=== PATIENT | female | born 2000 | race Caucasian/White ===

== ENCOUNTER 2019-03-04 10:36 | Inpatient (IN) | payer OTHER ==
[~2019-03-04 10:36] MED LIST: Bupivacaine 0.25% HCL 30 ML VIAL ONE
[2019-03-04] MEDS ORDERED: hydrALAZINE 20 MG/ML VIAL SLOW IVP PRN ×3 (10:45→23:40)
[2019-03-04] MEDS: Lactated Ringer's 1,000 ML IV SCH ×3 (11:25→20:32)
[2019-03-04] MEDS ORDERED: Butorphanol Tartrate 1 MG/ML VIAL SLOW IVP PRN (11:37)
[2019-03-04] MEDS ORDERED: Lidocaine 1% (PF) 30 ML VIAL SC PRN (11:37)
[2019-03-04] MEDS ORDERED: Carboprost 250 MCG/ML AMP IM PRN (11:37)
[2019-03-04] MEDS ORDERED: Methylergonovine 0.2 MG/ML VIAL IM PRN (11:37)
[2019-03-04] MEDS ORDERED: Ondansetron PF 4 MG/2 ML Vial IVP PRN ×2 (11:37→23:40)
[2019-03-04] MEDS ORDERED: Promethazine HCl 25 MG/ML VIAL IM PRN (11:37)
[2019-03-04] MEDS ORDERED: HYDROcodone/Acetaminophen 5/325 mg Tablet PO PRN ×2 (11:37)
[2019-03-04] MEDS ORDERED: Ibuprofen 800 MG TAB PO PRN (11:37)
[2019-03-04] MEDS ORDERED: Diphenoxylate HCl/Atropine Tablet PO PRN ×2 (11:37)
[2019-03-04] MEDS ORDERED: Misoprostol 200 MCG TAB PR PRN (11:37)
[2019-03-04] MEDS ORDERED: Acetaminophen 500 MG TAB PO PRN (11:37)
[2019-03-04] MEDS ORDERED: NS w/ Oxytocin 10 units 500 ML IV SCH ×3 (11:45→15:45)
[2019-03-04 11:49] VITALS: BMI 25.8
[2019-03-04 12:01] LABS: Hemoglobin 13.5 g/dL (12.0-16.0); Mean Corpuscular HGB CONC 33.8 g/dL (32.0-36.0); Mean Corpuscular Volume 91.8 fL (78.0-98.0); Mean Platelet Volume 10.1 fL (7.4-10.4); Platelet Count 162 thou/uL (130-400); RBC Distribution Width 12.1 % (11.5-14.5); Red Blood Cell (RBC) Count 4.34 mill/uL (4.00-5.20); White Blood Cell (WBC) Count 12.7 thou/uL (4.8-10.8)
[2019-03-04 12:43] LABS: HBSAg Index 0.18 S/CO (0-0.99); Hep B Surf Ag Non-Reactive S/CO (NonReactive)
[2019-03-04 12:44] LABS: Syphilis Antibody Nonreactive (Nonreactive); Syphilis Antibody Index 0.04 S/CO (<1.00 Non-Reactive)
--- NOTE | 2019-03-04 13:14 | PDOC.FPROB ---
FMR OB H&P: HPI - History of Present Illness Chief Complaint: SROM @ 0900 today History of Present Illness: Patient is a 18 yo at 40.2 weeks by 18.2 wk U/S who presents to L&D after her water broke at 0900 this morning. Patient states she had a large gush of clear fluid with some white chunks. She also began to feel contractions across her abdomen and back, about 3-4 minutes apart. Primary Care Physician: JAMSHID Pandey/Marco Hull FMR OB H&P: Current - Care : 1 Para: 0 Gestational age: 40.2 weeks by 18.2 wk U/S Due date: 03/02/2019 Dating Criteria: 18.2 wk U/S Course/Complications: PACs in December 2018, has f/u outpatient with Cardiology on Mar 12 - OB Labs Blood type: A RH: positive Antibody Screen: negative HIV: negative RPR: negative HepBsAg: negative Rubella: immune Quad screen: negative Urine drug screen: not done Gonorrhea: negative Chlamydia: negative 1 hour gtt: normal GBS: negative FMR OB H&P: History - Past Medical History PMH: PACs in December 2018 No prior PMHx before - OB History OB History: 1st - Surgical History Sx History: none - Social History Social History: No tobacco or EtOH use FMR OB H&P: Medications - Current Home Medications: Medication Instructions Recorded Confirmed Type No122/Iron/Folic Acid 1 each PO DAILY 03/04/19 03/04/19 History [ Multi Tablet] Allergies/Adverse Reactions: Allergies Allergy/AdvReac Type Severity Reaction Status Date / Time No Known Allergies Allergy Verified 03/04/19 11:38 FMR OB H&P: ROS - Review of Systems General: denies: fever/chills, weight/appetite/sleep changes, fatigue Eyes: denies: eye pain, vision changes ENT: denies: nasal congestion, rhinorrhea, sore throat Cardiovascular: denies: chest pain, palpitation, edema Respiratory: denies: cough, congestion, shortness of breath Gastrointestinal: denies: abdominal pain, nausea, vomiting, diarrhea Genitourinary (Female): reports: contractions. denies: incontinence, dysuria, vaginal bleeding Musculoskeletal: denies: pain, stiffness, decrease range of motion Neurologic: denies: syncope, seizures, loss of counsciousness Integumentary: denies: itching, rash Hematologic/Lymphatic: denies: prolonged or excessive bleeding FMR OB H&P: Vital Signs - Maternal Vital signs: Vital Signs - First Documented Temp Pulse Resp BP Pulse Ox 99.3 F 99 18 122/78 98 03/04/19 11:34 03/04/19 11:34 03/04/19 11:34 03/04/19 11:34 03/04/19 11:34 - Heart Tones Baseline: 140 Variability: moderate Acceleration: present Deceleration: absent [place] contractions every: 4-5 min FMR OB H&P: Physical Exam - Physical Exam General: NAD, awake, alert and oriented HEENT: normocephalic and atraumatic, EOMI, MMM, conjunctiva clear, no scleral icterus, grossly normal vision, grossly normal hearing Neck: supple, FROM Heart: RRR, normal S1/S2, no murmurs/rubs/gallops, pulses present, no edema General: CTAB, no respiratory distress, good air movement, no wheezing Abdomen: soft, non-tender Musculoskeletal: normal gait and station, pulses present, FROM in all four extremities Neurological: sensation to pain,touch and proprioception grossly normal, no focal deficit Skin: no rash, good tugor, no jaundice Lymphatic: no unusual bruising or bleeding Psychiatric: intact recent and remote memory, normal mood and affect - Pelvic Exam Vulva: normal hair distribution, no blood Deviation from normal: moderate amount of clear fluid and thick discharge SVE: 4/75/-2 Membranes: SROM earlier today Presentation: cephalic FMR OB H&P: Results - Labs Lab results: Laboratory Results - last 24 hr 03/04/19 03/04/19 03/04/19 11:50 11:50 11:50 WBC RBC Hgb Hct MCV MCH MCHC RDW Plt Count MPV Syphilis IgG/IgM Ab Nonreactive Hep Bs Antigen Non-Reactive Blood Type A POSITIVE Antibody Screen NEGATIVE 03/04/19 11:50 WBC 12.7 H RBC 4.34 Hgb 13.5 Hct 39.8 MCV 91.8 MCH 31.0 MCHC 33.8 RDW 12.1 Plt Count 162 MPV 10.1 Syphilis IgG/IgM Ab Hep Bs Antigen Blood Type Antibody Screen - Imaging Imaging: Bedside U/S performed, visualized head down with cervix FMR OB H&P: A/P - Problem List (1) Spontaneous rupture of membranes Current Visit: Yes Status: Acute Code(s): [id number] - (2) Term Current Visit: Yes Status: Acute Code(s): Z34.90 - ENCNTR FOR SUPRVSN OF NORMAL , UNSP, UNSP TRIMESTER Disposition: 18 yo at 40.2 weeks presents after SROM earlier today with complaint of contractions #SROM -GBS neg -pt desires epidural -FHT 140s, FHR tracing reactive and reassuring -will start Pitocin if no progression after monitoring for 4 hours #Term -admit to L&D for monitoring of progression of labor -augment labor as necessary Discussion: Date/Time: 03/04/19 1314 This H&P was discussed with Dr. Jane and Dr. Richardson who agree with the above documentation and plan. Addendum - Attending - Attending Attestation Date/Time: 03/06/19 1211 I personally evaluated the patient and discussed the management with Dr. Dotson I agree with the History, Examination, Assessment and Plan documented above with any addition or exceptions noted below. Admit for spontaneous rupture of membranes and labor at term Anticipate
[2019-03-04] MEDS ORDERED: Fentanyl 4 mcg/Bup 0.1% Cadd 100 ML ONE (14:54)
--- NOTE | 2019-03-04 20:17 | PDOC.OBLPN ---
FMR OB Labor PN: Subj - Interval History Hospital Day: 1 Chief Complaint: pressure Indentification: 18 yo female at 40.2 wks by 18.2 wk sono Interval History: Now on pit of 6 mU. Epidural controlling pain. FMR OB Labor PN: Obj - Maternal Vital signs: BP: [120/97] 120/mod/pos acel/early decels - Urine output I&O: appropriate - Procedures Procedures: none FMR OB Labor PN: Exam - Physical Exam General: NAD, awake, alert and oriented HEENT: normocephalic and atraumatic, PERRLA, EOMI, MMM Neck: supple Chest: non-tender to palpation Heart: RRR, no edema General: no respiratory distress, good air movement Abdomen: soft, gravid, non-tender Psychiatric: good judgement and insight, normal mood and affect - Pelvic Exam Vulva: normal hair distribution, no discharge, no blood Cervix: no masses, no lesions SVE: /0 Membranes: PROM at 0900, clear Presentation: Cephalic by sutures FMR OB Labor PN: Data - Labs Lab results: Laboratory Results - last 24 hr 03/04/19 03/04/19 03/04/19 11:50 11:50 11:50 WBC RBC Hgb Hct MCV MCH MCHC RDW Plt Count MPV Syphilis IgG/IgM Ab Nonreactive Hep Bs Antigen Non-Reactive Blood Type A POSITIVE Antibody Screen NEGATIVE 03/04/19 03/04/19 11:50 12:51 WBC 12.7 H RBC 4.34 Hgb 13.5 Hct 39.8 MCV 91.8 MCH 31.0 MCHC 33.8 RDW 12.1 Plt Count 162 MPV 10.1 Syphilis IgG/IgM Ab Hep Bs Antigen Blood Type A POSITIVE Antibody Screen FMR OB Labor PN: A/P - Problem List (1) Late care Current Visit: Yes Status: Acute Code(s): O09.30 - SUPRVSN OF PREG W INSUFFICIENT ANTENAT CARE, UNSP TRIMESTER Assessment and Plan: Follow up pp to make sure patient has all appropriate items for baby. (2) Term Current Visit: Yes Status: Acute Code(s): Z34.90 - ENCNTR FOR SUPRVSN OF NORMAL , UNSP, UNSP TRIMESTER Assessment and Plan: IOB labs reviewed. Anatomy scan reviewed. 1 hour gtt WNL. s/p Tdap. GBS neg. Cephalic by sutures. Cat 1 tracing. Continue pitocin. Expect soon. Epidural in place. Disposition: Expect soon. Fady 8lb. estimate. Discussion: Date/Time: 03/04/192014 This H&P was discussed with Dr. Crawley and Dr. Sanchez who agree with the above documentation and plan. Signature: Shekhar Osorio DO, PGY1 Addendum - Attending - Attending Attestation Date/Time: 03/05/191999 I personally evaluated the patient and discussed the management with Dr. [] I agree with the History, Examination, Assessment and Plan documented above with any addition or exceptions noted below. 18 yo female at 40.2 wks by 18.2 wk sono here for labor. Patient doing well. Now progressed to [address] for pain control. Repeat exam in 1 hour. Cat 1 tracing. Ctx q 2 to 3 mins. Pili
--- NOTE | 2019-03-04 20:33 | PDOC.OBLPN ---
FMR OB Labor PN: Subj - Interval History Hospital Day: 1 Chief Complaint: Contractions FMR OB Labor PN: Exam - Physical Exam General: NAD, awake, alert and oriented HEENT: normocephalic and atraumatic, grossly normal vision, grossly normal hearing Neck: supple Heart: pulses present, no edema Abdomen: soft, non-tender Musculoskeletal: pulses present Neurological: no focal deficit Skin: no rash, good tugor - Pelvic Exam Vulva: normal hair distribution Deviation from normal: clear discharge present at vaginal introitus SVE: /-1 Presentation: cephalic, confirmed via U/S FMR OB Labor PN: Data - Labs Lab results: Laboratory Results - last 24 hr 03/04/19 03/04/19 03/04/19 11:50 11:50 11:50 WBC RBC Hgb Hct MCV MCH MCHC RDW Plt Count MPV Syphilis IgG/IgM Ab Nonreactive Hep Bs Antigen Non-Reactive Blood Type A POSITIVE Antibody Screen NEGATIVE 03/04/19 03/04/19 11:50 12:51 WBC 12.7 H RBC 4.34 Hgb 13.5 Hct 39.8 MCV 91.8 MCH 31.0 MCHC 33.8 RDW 12.1 Plt Count 162 MPV 10.1 Syphilis IgG/IgM Ab Hep Bs Antigen Blood Type A POSITIVE Antibody Screen FMR OB Labor PN: A/P - Problem List (1) Spontaneous rupture of membranes Current Visit: Yes Status: Acute Code(s): [id number] - (2) Term Current Visit: Yes Status: Acute Code(s): Z34.90 - ENCNTR FOR SUPRVSN OF NORMAL , UNSP, UNSP TRIMESTER Disposition: Patient states that she continues to feel contractions in back and abdomen about every 5 minutes. FHR in 130s, reassuring and reactive. BP 110s/70s. Mom feels baby moving. SVE 80/-1. Upon exam, some additional clear discharge and fluids were expressed. Bedside U/S exam was performed to confirm presentation-- cephalic with cervix also in view. #Term -will continue routine care -patient has watched epidural video and is still deciding on whether or not she wants it done -will augment labor with Pitocin if needed -will check for progression in 2-3 hours Discussion: Date/Time: 03/04/192029 This H&P was discussed with Dr. Richardson who agree with the above documentation and plan.
--- NOTE | 2019-03-04 20:46 | PDOC.OBLPN ---
FMR OB Labor PN: Subj - Interval History Hospital Day: 1 Chief Complaint: Contractions FMR OB Labor PN: Exam - Physical Exam General: NAD, awake, alert and oriented HEENT: normocephalic and atraumatic, grossly normal vision, grossly normal hearing Neck: supple Heart: pulses present, no edema Abdomen: soft, non-tender Musculoskeletal: pulses present, FROM in all four extremities Neurological: no focal deficit Skin: no rash, good tugor Psychiatric: normal mood and affect - Pelvic Exam Vulva: normal hair distribution, no discharge, no blood SVE: 5/80/0 Presentation: cephalic FMR OB Labor PN: Data - Labs Lab results: Laboratory Results - last 24 hr 03/04/19 03/04/19 03/04/19 11:50 11:50 11:50 WBC RBC Hgb Hct MCV MCH MCHC RDW Plt Count MPV Syphilis IgG/IgM Ab Nonreactive Hep Bs Antigen Non-Reactive Blood Type A POSITIVE Antibody Screen NEGATIVE 03/04/19 03/04/19 11:50 12:51 WBC 12.7 H RBC 4.34 Hgb 13.5 Hct 39.8 MCV 91.8 MCH 31.0 MCHC 33.8 RDW 12.1 Plt Count 162 MPV 10.1 Syphilis IgG/IgM Ab Hep Bs Antigen Blood Type A POSITIVE Antibody Screen FMR OB Labor PN: A/P - Problem List (1) Spontaneous rupture of membranes Current Visit: Yes Status: Acute Code(s): [id number] - (2) Term Current Visit: Yes Status: Acute Code(s): Z34.90 - ENCNTR FOR SUPRVSN OF NORMAL , UNSP, UNSP TRIMESTER Disposition: Patient decided that she wanted an epidural, and it was placed at approx 1530 by anesthesia. Patient now reports that she is feeling better, in less pain. Still feeling some contractions. Initially it was decided for pitocin to be started, but this order was held due to seeing some variable decels on FHR tracing. FHR 140s baseline, with some accelerations and occasional variable decel. SVE 5/80/0. #Term with SROM @ 0900 -hold pitocin order for now, will reassess in 1 hour -will recheck SVE in 2 hours -otherwise continue routine care, closely monitor FHR tracing -epidural now in place Discussion: Date/Time: 03/04/192039 This H&P was discussed with Dr. Richardson who agree with the above documentation and plan.
--- NOTE | 2019-03-04 20:50 | PDOC.OBLPN ---
FMR OB Labor PN: Subj - Interval History Hospital Day: 1 Chief Complaint: Contractions FMR OB Labor PN: Exam - Physical Exam General: NAD, awake, alert and oriented HEENT: normocephalic and atraumatic, MMM, grossly normal vision, grossly normal hearing Neck: supple Heart: pulses present, no edema Abdomen: soft, non-tender Musculoskeletal: pulses present, FROM in all four extremities Skin: no rash, no jaundice Lymphatic: no unusual bruising or bleeding - Pelvic Exam Vulva: normal hair distribution SVE: FMR OB Labor PN: Data - Labs Lab results: Laboratory Results - last 24 hr 03/04/19 03/04/19 03/04/19 11:50 11:50 11:50 WBC RBC Hgb Hct MCV MCH MCHC RDW Plt Count MPV Syphilis IgG/IgM Ab Nonreactive Hep Bs Antigen Non-Reactive Blood Type A POSITIVE Antibody Screen NEGATIVE 03/04/19 03/04/19 11:50 12:51 WBC 12.7 H RBC 4.34 Hgb 13.5 Hct 39.8 MCV 91.8 MCH 31.0 MCHC 33.8 RDW 12.1 Plt Count 162 MPV 10.1 Syphilis IgG/IgM Ab Hep Bs Antigen Blood Type A POSITIVE Antibody Screen FMR OB Labor PN: A/P - Problem List (1) Spontaneous rupture of membranes Current Visit: Yes Status: Acute Code(s): [id number] - (2) Term Current Visit: Yes Status: Acute Code(s): Z34.90 - ENCNTR FOR SUPRVSN OF NORMAL , UNSP, UNSP TRIMESTER Disposition: Patient states that she doesn't feel her contractions much. FHR tracing shows contractions occurring about every 3-4 minutes, FHR 140s, some early decels, no variable decels. Pitocin was started at 1730. BP 130s/80. SVE now #Term -continue Pitocin at 6, augment as needed -otherwise continue routine care -will recheck SVE in 2 hours to assess labor progression Discussion: Date/Time: 03/04/192045 This H&P was discussed with Dr. Richardson who agree with the above documentation and plan.
[2019-03-04] MEDS: NS / Oxytocin 40 units/1000ml 1,000 ML IV PRN ×2 (20:53→22:42)
--- NOTE | 2019-03-04 21:06 | PDOC.OPDEL ---
OB Operative/Delivery Note Delivery Dr/Surgeon: Finn Osorio Assist: Daniel (attending) Pre-Delivery Diagnosis: active labor Procedure/Post Delivery Dx: spontaneous vaginal delivery Weeks gestation: 40 (40.2) Anesthesia: epidural - Additional Findings/Plan Placenta delivered: spontaneous Repaired Obstetrical Laceration: none Compilations/Other Findings: Procedure: Spontaneous Vaginal Delivery Anesthesia: epidural QBL: 283 ml Pre-op Diagnosis: 1. Term intrauterine in labor 2. PACs, cardiology f/u 3. Late to care Post-op Diagnosis: 1. Term intrauterine , delivered 2. same as above 3. same as above Indications: A 18y/o female presents in active labor after PROM at 0900 on 03/04 Delivery Note: This is 18 yo F @ 40.2 wga by 18.2 wks sono who delivered a viable M at 2045 on 03/04. Following an uneventful antepartum course, a vigorous male was delivered over an intact perineum in the occipitoanterior position. Anterior Shoulder and then remainder of the body delivered. Loose, nuchal cord x1, which was reduced while body was delivered. Cord clamped after delayed cord clamping and cut. Cord blood collected. Placenta delivered intact in the Hammonds presentation with a 3 vessel cord noted. Fundal massage was performed, and the fundus was firm. The cervix and vagina were inspected and found to be free of lacerations. Infant went to nursery in good condition for routine care. Apgars were 9/9 at 1 & 5 minutes, respectively. Patient tolerated delivery well and went to after routine recovery/ care. Dr. Sanchez present for entirety of delivery. Attending Note: I was present for the delivery and participated in all above documented steps. 18 yo female at 40.2 wks dated by 18.2 wk sono presented in active labor after PROM at 0900 on the same day. Patient progressed spontaneously then required minimal augmentation with pitocin. Uncomplicated at 2045. delivered in OA position. Nuchal x1. Delivered through. APGARs 9/9. Delayed cord clamping performed. Placenta delivered without complications. No lacerations. Routine pp care. Pili
[2019-03-04] MEDS ORDERED: guaiFENesin 200 MG TAB PO PRN (23:36)
[2019-03-04] MEDS ORDERED: Lanolin Ointment 7 GM TUBE TOP PRN (23:40)
[2019-03-04] MEDS ORDERED: Misoprostol 200 MCG TAB VAG PRN (23:40)
[2019-03-04] MEDS ORDERED: Benzocaine-Menthol 82.5 ML CAN TOP PRN (23:40)
[2019-03-04] MEDS ORDERED: Milk Of Magnesia 30 ML UDCUP PO PRN (23:40)
[2019-03-04] MEDS ORDERED: Adacel (T-DAP) 0.5 ML SYRINGE IM ONE (23:40)
[2019-03-04] MEDS ORDERED: Preparation H Ointment 28 GM TUBE PR PRN (23:40)
[2019-03-04] MEDS ORDERED: NS / Oxytocin 40 units/1000ml 1,000 ML IV SCH (23:40)
[2019-03-04] MEDS ORDERED: diphenhydrAMINE 25 MG CAP PO PRN (23:40)
[2019-03-04] MEDS ORDERED: Bisacodyl 10 MG SUPP PR PRN (23:40)
[2019-03-04] MEDS ORDERED: Docusate Calcium (SURFAK) 240 MG CAP PO SCH (23:45)
[2019-03-04] MEDS ORDERED: Ibuprofen 800 MG TAB PO SCH (23:45)
[2019-03-05 05:58] LABS: Mean Corpuscular HGB CONC 33.5 g/dL (32.0-36.0); Mean Corpuscular Hemoglobin 31.1 pg (25.0-35.0); Mean Platelet Volume 9.5 fL (7.4-10.4); Platelet Count 122 thou/uL (130-400); RBC Distribution Width 12.2 % (11.5-14.5); Red Blood Cell (RBC) Count 3.87 mill/uL (4.00-5.20); White Blood Cell (WBC) Count 14.1 thou/uL (4.8-10.8)
[2019-03-05] MEDS: Ibuprofen 800 MG TAB PO SCH ×3 (06:08→21:29)
[2019-03-05] MEDS: Ferrous Sulfate 325 MG TAB PO SCH (07:37)
[2019-03-05] MEDS: Prenatal Vitamin 1 TAB PO SCH (08:20)
[2019-03-05] MEDS: Docusate Calcium (SURFAK) 240 MG CAP PO SCH ×2 (08:21→21:29)
--- NOTE | 2019-03-05 11:55 | PDOC.PP ---
Post Progress Note Post Day #: 1 Subjective: Patients states she feels well. Has some lower abdominal pain, "feels sore". She was able to tolerate dinner and breakfast. No bleeding or passage of clots since delivery. Denies vaginal discharge. Has not had a BM yet. Has been voiding. Denies nausea/vomiting. PO intake tolerated: yes Flatus: yes Ambulation: yes Vital Signs (12 hours) Temp Pulse Resp BP Pulse Ox 03/05/19 11:34 98.9 F 77 12 119/77 96 03/05/19 07:50 98.3 F 75 12 124/66 96 03/05/19 05:50 98.1 F 95 16 116/77 03/05/19 01:20 98.9 F 100 16 122/67 03/05/19 00:10 98.6 F 95 18 120/75 Weight Weight 72.575 kg - Physical Examination General: NAD Cardiovascular: no m/r/g, RRR Respiratory: clear to auscultation bilaterally, non-labored breathing Abdominal: + bowel sounds, no distention, appropriately TTP Fundus firm & at: 1-2 in below umbilicus Extremities: negative homans (B) (no edema, pulses equal bilaterally) Skin: no rash Neurological: no gross focal deficits Psychiatric: A&Ox3, normal affect Result Diagrams: 03/05/19 05:43 Additional Labs: Post Labs Blood Type A POSITIVE 03/04/19 12:51 Hep Bs Antigen Non-Reactive S/CO (NonReactive) 03/04/19 11:50 (1) Spontaneous rupture of membranes Code(s): [id number] - Status: Acute (2) Term Code(s): Z34.90 - ENCNTR FOR SUPRVSN OF NORMAL , UNSP, UNSP TRIMESTER Status: Acute - Assessment/Plan Patient is a 18yo Female with PMHx of PACs in December 2018, who is s/p day #1 #Term , delivered 03/04/19 -s/p on 03/04/10 at 2046. No lacerations. QBL 283. -patient doing well, is ambulating, passed gas, is voiding -no bleeding or passage of clots, will continue to monitor -desires OCPs for post- contraception, was previously taking BC "Truvora" before -continue routine post- care #Constipation -pt with no BM since admission, will order stool softener this morning #Hx of PACs -pt has scheduled outpatient follow up with Cardiology on Mar 12 Dispo: Stable, admitted to post- floor. Will order stool softener. Will continue to monitor with anticipated discharge home tomorrow morning. Addendum - Attending - Attending Attestation Date/Time: 03/05/19 2480 I personally evaluated the patient and discussed the management with Dr. Dotson I agree with the History, Examination, Assessment and Plan documented above with any addition or exceptions noted below. Stable PPD #1 s/p uncomplicated Meeting appropriate milestones Continue routine care.
[2019-03-05] MEDS ORDERED: Bisacodyl 5 MG TAB PO SCH (12:30)
[2019-03-06] MEDS: Ibuprofen 800 MG TAB PO SCH ×2 (05:43→13:58)
--- NOTE | 2019-03-06 07:23 | PDOC.PP ---
Post Progress Note Post Day #: 2 Subjective: Doing well overall. Bleeding is less than a normal period and denies passing clots. Pain controlled with Motrin. Urinating and passing gas. No complaints from patient or concerns from nursing. Denies CP, SOB, bleeding, LE edema. PO intake tolerated: yes Vital Signs (12 hours) Temp Pulse Resp BP 03/06/19 05:40 98.1 F 79 16 117/60 03/06/19 00:25 97.9 F 78 16 117/55 L Weight Weight 72.575 kg - Physical Examination General: NAD Cardiovascular: no m/r/g, RRR Respiratory: clear to auscultation bilaterally Abdominal: no distention, appropriately TTP Fundus firm & at: u-2 Extremities: negative homans (B) Neurological: no gross focal deficits Psychiatric: A&Ox3, normal affect Result Diagrams: 03/05/19 05:43 Additional Labs: Post Labs Blood Type A POSITIVE 03/04/19 12:51 Hep Bs Antigen Non-Reactive S/CO (NonReactive) 03/04/19 11:50 (1) Term delivered Code(s): O80 - ENCOUNTER FOR FULL-TERM UNCOMPLICATED DELIVERY Status: Acute - Assessment/Plan Patient is a 18yo Female with PMHx of PACs in December 2018, who is s/p day #2 1. Term , delivered 03/04/19 -s/p on 03/04/10 at 2046. No lacerations. QBL 283. -continue routine post- care Dispo: Ready to dc today Addendum - Attending - Attending Attestation Date/Time: 03/06/19 5813 I personally evaluated the patient and discussed the management with Dr. Lott. I agree with the History, Examination, Assessment and Plan documented above with any addition or exceptions noted below. Stable PPD #2. meeting all appropriate milestones. Stable for d/c to home today.
[2019-03-06] MEDS: Docusate Calcium (SURFAK) 240 MG CAP PO SCH (08:38)
[2019-03-06] MEDS: Prenatal Vitamin 1 TAB PO SCH (08:38)
[2019-03-06] MEDS: Ferrous Sulfate 325 MG TAB PO SCH (10:10)
[2019-03-06 12:49] VITALS: BP 129/76; TEMP 98.7
== END 2019-03-06 17:22 | disposition home or self-care (01) | DRG 805 ==
LOC: L&D/OP 10:36 → L&D 11:18 → 3SE 23:30
PROVIDERS: ADMIT Family Medicine; ATTEND Family Medicine
PROC: 10E0XZZ Delivery of Products of Conception, External Approach (ICD-10-PCS; principal; 2019-03-04)
DX: O48.0 Post-term pregnancy (principal); O99.42 Diseases of the circulatory system complicating childbirth; Z37.0 Single live birth; I49.1 Atrial premature depolarization; Z3A.40 40 weeks gestation of pregnancy; O69.81X0 Labor and delivery complicated by cord around neck, without compression, not applicable or unspecified; O99.62 Diseases of the digestive system complicating childbirth; K59.00 Constipation, unspecified
CPT/HCPCS: 36415; 85027; 86780; 86850; 86900; 86901; 87340; J2590; S0020

== ENCOUNTER 2020-01-11 18:45 | Emergency (ER) | payer OTHER, SELFPAY ==
[2020-01-11] MEDS ORDERED: HYDROcodone/Acetaminophen 5/325 mg Tablet ONE (20:50)
== END 2020-01-11 20:54 | disposition home or self-care (01) ==
LOC: ERS 18:45
DX: K02.9 Dental caries, unspecified (principal); K03.81 Cracked tooth
CPT/HCPCS: 99282